=== PATIENT | female | born 2000 | race Caucasian/White ===

== ENCOUNTER 2020-01-19 11:58 | Outpatient (REF) | payer OTHER, SELFPAY | END 2020-01-19 11:59 | disposition home or self-care (01) | LOC: HO.LAB 11:58 | PROVIDERS: Visit Provider Internal Medicine | DX: Z20.828 Contact with and (suspected) exposure to other viral communicable diseases (principal) | CPT/HCPCS: C9803; U0003 ==

== ENCOUNTER 2020-08-16 09:20 | Emergency (ER) | payer OTHER, SELFPAY ==
--- NOTE | ~2020-08-16 | XR_ITS ---
EXAMINATION: XR CHEST CLINICAL INFORMATION: Chest pain, rule out pneumonia. COMPARISON: None TECHNIQUE: Frontal view of the chest was obtained. FINDINGS: No significant abnormality is noted involving the heart, lungs, mediastinum, bony thorax or soft tissues. XR/XR chest 1V IMPRESSION: No acute cardiopulmonary process.
[2020-08-16 09:50] VITALS: BP 100/67; PULSE 83; RESP 18; TEMP 36.6; O2SAT 98; BMI 34.2
--- NOTE | 2020-08-16 10:22 | ECG_ITS ---
Test Reason : UPPER RESPIRATORY Blood Pressure : / mmHG Vent. Rate : 084 BPM Atrial Rate : 084 BPM P-R Int : 166 ms QRS Dur : 082 ms QT Int : 356 ms P-R-T Axes : 039 044 047 degrees QTc Int : 420 ms Normal sinus rhythm Normal ECG No previous ECGs available Referred By: Joni Hussein Electronically Signed By:JULIET DA SILVA
--- NOTE | 2020-08-16 10:54 | ED_ITS ---
HPI - URI/Sore Throat General Chief Complaint: Upper Respiratory Symptoms Stated Complaint: asthma Time Seen by Provider: 08/16/20 10:03 Source: patient Mode of arrival: ambulatory Limitations: no limitations History of Present Illness HPI Narrative: patient presents to the ED for shortness of breath and Cough for the past 4 days. Patient states feeling chest tightness also with cough. Patient was seen at [facility] this past Saturday and was tested for COVID-19 and was negative. Patient states symptoms persist. Patient denies any swelling of lower extremities, control use, recent surgery, recent long travel, recent trauma or history of blood clots. MD elicited complaint: cough Related Data Home Medications Medication Instructions Recorded Confirmed No Known Home Meds 04/28/20 04/28/20 Allergies Allergy/AdvReac Type Severity Reaction Status Date / Time nystatin Allergy Severe Hives Verified 04/28/20 15:44 Review of Systems Review of Systems: Yes all other systems are reviewed and are negative Constitutional: Constitutional: Reports as per HPI and Reports no additional constitutional complaints Eyes: Eyes: Reports as per HPI and Reports no additional eye complaints ENT: Reports system reviewed and no additional complaints, except as documented and Reports as per HPI Cardiovascular: Cardiovascular: Reports as per HPI, Reports no additional cardiovascular complaints, Reports chest pain and Reports dyspnea Respiratory: Respiratory: Reports pain on inspiration, Reports pain with cough, Reports dyspnea and Reports wheezing Gastrointestinal: Gastrointestinal: Reports as per HPI and Reports no additional gastrointestinal complaints Musculoskeletal: Musculoskeletal: Reports no additional musculoskeletal complaints and Reports as per HPI Neurologic: Reports system reviewed and no additional complaints, except as documented and Reports as per HPI Psychiatric: Psychiatric: Reports no additional psychiatric complaints and Reports as per HPI Allergic/Immunologic: Allergic/Immunologic: Reports wheezing [facility] Past Medical History Medical History (Updated 08/16/20 @ 13:54 by LUCY Boss) Asthma Surgical History (Updated 04/28/20 @ 15:36 by Arline Nicole) No history of previous surgery Family History Family History (Updated 04/28/20 @ 15:37 by Arline Nicole) Father No problems noted. Mother No problems noted. Social History Social History (Updated 04/28/20 @ 15:37 by Arline Nicole) Alcohol intake: current Alcohol intake frequency: holidays/special occasions only Patient Tobacco Use Status: Current everyday Tobacco user Cigarettes Per Day: 3 Use of substances other than those prescribed or required for medical reasons: Yes Substance Use Type: Marijuana Advance Directives: Yes Advance Directives Information Provided: Yes Advance Directives on File: No Physical Exam Vital Signs: Vital Signs: Last Vital Signs Temp 98.2 F 08/16/20 13:18 Pulse 79 08/16/20 13:18 Resp 16 08/16/20 13:18 BP 103/54 L 08/16/20 13:18 Pulse Ox 95 08/16/20 13:18 Body Mass Index 34.2 Const: General: cooperative, healthy appearing, comfortable, no acute distress, well developed, alert, awake and Physically active Orientation/consciousness: patient oriented x3 HENMT: Head: Yes normal to inspection, Yes No palpable skull fracture present, Yes normocephalic, Yes atraumatic and Yes abrasion Eyes: General: appearance normal, both eyes and all related structures Neck: Neck: Yes normal visual inspection, Yes full ROM, Yes no lymphadenopathy, Yes no meningeal signs, Yes trachea midline, Yes supple and No tender Chest: Other: positive for chest wall tenderness on palpation Chest palpation & inspection: normal inspection of the chest Resp: Effort & Inspection: normal respiratory effort and able to speak in complete sentences Auscultation: clear to auscultation bilaterally and wheezes expiratory wheezes Cardio: Jugular venous distension: no JVD Heart sounds: S1 normal heart sound present GI: Inspection: Yes normal to inspection and No abdominal wall ecchymosis Palpation (GI): Soft to palpation, not firm, nontender, no guarding and not rigid : General: No CVA tenderness and Yes no CVA tenderness Back/Spine/Pelvis: Back: no CVA tenderness, No CVA tenderness and No back tenderness Skin: General skin exam: no rashes or lesions noted and elasticity normal Neuro: General: patient oriented x3, gait normal, no meningeal signs and CN's II-XI intact bilaterally Cranial nerves: Yes CN's II-XII intact bilaterally Extrem: Other: no extremity is negative for any swelling, pitting edema, calf tenderness General: Yes normal to inspection and Yes full ROM Psych: Appearance: grossly normal, well kempt and not disheveled Course Course Course Narrative: patient will have SARS PCR sent. Patient will have labs and chest x-ray. Patient will have D-dimer sent and EKG. COVID labs also sent. Albuterol Solu-Medrol and magnesium ordered. Reevaluation(s) Reevaluation #1: EKG negative for STEMI. Troponin negative. D-dimer is negative. Perc Score 0 COVID swab is negative. COVID labs are negative. Chest x-ray negative for any pneumonia. Diagnosis is asthma Exacerbation. Patient is safe for discharge. Patient feels better. O2 saturation on room air 98%. Time: 13:48 MDM - URI/Sore Throat MDM Narrative Medical decision making narrative: asthma exacerbation Lab Data Result diagrams: 08/16/20 11:05 08/16/20 11:05 Labs: Lab Results 08/16/20 08/16/20 08/16/20 Range/Units 11:04 11:05 11:05 WBC 12.5 H (4.8-10.8) X10*3/uL RBC 4.26 (4.20-5.50) X10*6/uL Hgb 13.0 (12.0-16.0) g/dl Hct 39.3 (37-47) % MCV 92.3 (80-98) fL MCH 30.5 (27.0-33.0) pg MCHC 33.1 (31.0-35.0) g/dl RDW 13.8 (11.0-16.0) % Plt Count 381 (160-400) X10*3/uL MPV 9.3 L (9.4-12.3) fL Immature Gran % (Auto) 0.5 H (0.0-0.4) % Neut % (Auto) 72.4 (45-73) % Lymph % (Auto) 16.2 L (20-40) % [place] % (Auto) 6.3 (2-11) % Eos % (Auto) 4.3 H (0-4) % Baso % (Auto) 0.3 (0-2) % Lymph # (Auto) 2.0 (1.2-4.9) X10*3/uL [place] # (Auto) 0.8 (0.1-1.2) X10*3/uL Eos # (Auto) 0.5 H (0.0-0.4) X10*3/uL Baso # (Auto) 0.0 (0.0-0.2) X10*3/uL Abs Immat Gran (auto) 0.06 H (0.00-0.03) X10*3/uL Absolute Neuts (auto) 9.0 H (2.0-8.3) X10*3/uL Absolute Nucleated RBC 0.000 (0.0-0.012) X10*3/uL Nucleated RBC % (auto) 0.0 (0.0-0.2) /100WBC PT 11.3 (9.9-13.0) SEC INR 1.0 (0.9-1.1) APTT 29.9 (24.1-38.0) SEC D-Dimer < 200 NG/ML Sodium (135-145) mmol/L Potassium (3.3-5.1) mmol/L Chloride (96-108) mmol/L Carbon Dioxide (22-29) mmol/L Anion Gap (12-20) BUN (9-16) mg/dL Creatinine (0.5-1.4) mg/dL Estim Creat Clear Calc Estimated GFR Random Glucose (60-115) mg/dL Calcium (8.4-10.2) mg/dL Ferritin (10-122) ng/mL Total Bilirubin (0.0-1.0) mg/dL AST (5-31) U/L ALT (0-31) U/L Alkaline Phosphatase (39-117) U/L Lactate Dehydrogenase (122-220) U/L Troponin I High Sens (<3.5-17.0) ng/L Total Protein (6.5-8.0) g/dL Albumin (3.5-5.0) g/dL Procalcitonin ng/mL Beta HCG, Quant < 2 mIU/mL Coronavirus (PCR) (Negative) Influenza Type A (PCR) (Negative) Influenza Type B (PCR) (Negative) RSV RNA Qual (PCR) (Negative) 08/16/20 08/16/20 08/16/20 Range/Units 11:05 11:05 11:05 WBC (4.8-10.8) X10*3/uL RBC (4.20-5.50) X10*6/uL Hgb (12.0-16.0) g/dl Hct (37-47) % MCV (80-98) fL MCH (27.0-33.0) pg MCHC (31.0-35.0) g/dl RDW (11.0-16.0) % Plt Count (160-400) X10*3/uL MPV (9.4-12.3) fL Immature Gran % (Auto) (0.0-0.4) % Neut % (Auto) (45-73) % Lymph % (Auto) (20-40) % [place] % (Auto) (2-11) % Eos % (Auto) (0-4) % Baso % (Auto) (0-2) % Lymph # (Auto) (1.2-4.9) X10*3/uL [place] # (Auto) (0.1-1.2) X10*3/uL Eos # (Auto) (0.0-0.4) X10*3/uL Baso # (Auto) (0.0-0.2) X10*3/uL Abs Immat Gran (auto) (0.00-0.03) X10*3/uL Absolute Neuts (auto) (2.0-8.3) X10*3/uL Absolute Nucleated RBC (0.0-0.012) X10*3/uL Nucleated RBC % (auto) (0.0-0.2) /100WBC PT (9.9-13.0) SEC INR (0.9-1.1) APTT (24.1-38.0) SEC D-Dimer NG/ML Sodium 139 (135-145) mmol/L Potassium 4.6 (3.3-5.1) mmol/L Chloride 106 (96-108) mmol/L Carbon Dioxide 25 (22-29) mmol/L Anion Gap 13 (12-20) BUN 17 H (9-16) mg/dL Creatinine 0.76 (0.5-1.4) mg/dL Estim Creat Clear Calc 122.8 Estimated GFR > 60 Random Glucose 85 (60-115) mg/dL Calcium 9.5 (8.4-10.2) mg/dL Ferritin 52 (10-122) ng/mL Total Bilirubin 0.5 (0.0-1.0) mg/dL AST 11 (5-31) U/L ALT 10 (0-31) U/L Alkaline Phosphatase 61 (39-117) U/L Lactate Dehydrogenase 163 (122-220) U/L Troponin I High Sens < 3.5 (<3.5-17.0) ng/L Total Protein 7.3 (6.5-8.0) g/dL Albumin 4.2 (3.5-5.0) g/dL Procalcitonin < 0.02 ng/mL Beta HCG, Quant mIU/mL Coronavirus (PCR) (Negative) Influenza Type A (PCR) (Negative) Influenza Type B (PCR) (Negative) RSV RNA Qual (PCR) (Negative) 08/16/20 Range/Units 11:06 WBC (4.8-10.8) X10*3/uL RBC (4.20-5.50) X10*6/uL Hgb (12.0-16.0) g/dl Hct (37-47) % MCV (80-98) fL MCH (27.0-33.0) pg MCHC (31.0-35.0) g/dl RDW (11.0-16.0) % Plt Count (160-400) X10*3/uL MPV (9.4-12.3) fL Immature Gran % (Auto) (0.0-0.4) % Neut % (Auto) (45-73) % Lymph % (Auto) (20-40) % [place] % (Auto) (2-11) % Eos % (Auto) (0-4) % Baso % (Auto) (0-2) % Lymph # (Auto) (1.2-4.9) X10*3/uL [place] # (Auto) (0.1-1.2) X10*3/uL Eos # (Auto) (0.0-0.4) X10*3/uL Baso # (Auto) (0.0-0.2) X10*3/uL Abs Immat Gran (auto) (0.00-0.03) X10*3/uL Absolute Neuts (auto) (2.0-8.3) X10*3/uL Absolute Nucleated RBC (0.0-0.012) X10*3/uL Nucleated RBC % (auto) (0.0-0.2) /100WBC PT (9.9-13.0) SEC INR (0.9-1.1) APTT (24.1-38.0) SEC D-Dimer NG/ML Sodium (135-145) mmol/L Potassium (3.3-5.1) mmol/L Chloride (96-108) mmol/L Carbon Dioxide (22-29) mmol/L Anion Gap (12-20) BUN (9-16) mg/dL Creatinine (0.5-1.4) mg/dL Estim Creat Clear Calc Estimated GFR Random Glucose (60-115) mg/dL Calcium (8.4-10.2) mg/dL Ferritin (10-122) ng/mL Total Bilirubin (0.0-1.0) mg/dL AST (5-31) U/L ALT (0-31) U/L Alkaline Phosphatase (39-117) U/L Lactate Dehydrogenase (122-220) U/L Troponin I High Sens (<3.5-17.0) ng/L Total Protein (6.5-8.0) g/dL Albumin (3.5-5.0) g/dL Procalcitonin ng/mL Beta HCG, Quant mIU/mL Coronavirus (PCR) NEGATIVE (Negative) Influenza Type A (PCR) NEGATIVE (Negative) Influenza Type B (PCR) NEGATIVE (Negative) RSV RNA Qual (PCR) NEGATIVE (Negative) ECG Data Interpretation: normal sinus rhythm. Ventricular rate 84. IA interval 166. QRS 82. QTC 420. Negative STEMI Discharge Plan Discharge Clinical Impression: Asthma exacerbation Patient Disposition: Home, Self-Care Instructions: Asthma (ED), Upper Respiratory Infection (ED) Additional Instructions: your chest x-ray came back negative for pneumonia. Your blood work and EKG came back negative for heart attack. Your blood test came back negative for risk of blood clot. Her COVID swab came back negative. Continue taking prescribed meds ( prednisone/albuterol) given to you by [facility] ER this past Saturday. Return to the ED immediately for swelling of lower extremities, calf pain, coughing up blood, worsening chest pain, shortness of breath, or any other concerning symptoms. Prescriptions: No Action No Known Home Meds RF: 0 Referrals: Elan Wilcox PA-C [Primary Care Provider] - 2 days ( Asthma exacerbation. EKG and troponin normal. Chest x-ray normal. D-dimer negative. COVID swab negative) Interventions: ED Discharge Assessment Last Done: 08/16/20 14:06 Discharge Date/Time: 08/16/20 14:07 Print Language: Korean
[2020-08-16] MEDS: methylPREDNISolone Sod Succ 125 MG/2 ML VIAL IVPUSH (11:15)
[2020-08-16] MEDS: Magnesium Sulfate/H2O 2 GM/50 ML PIGGYBACK IV (11:15)
[2020-08-16 11:19] VITALS: O2SAT 97
[2020-08-16 11:19] LABS: MANUAL DIFF FLAG NO
[2020-08-16] MEDS: Albuterol/Iprat 2.5/0.5MG 3 ML AMPUL.NEB INHALE (11:19)
[2020-08-16 11:21] VITALS: RESP 18; O2SAT 96
--- NOTE | 2020-08-16 11:22 | PC.NURSE ---
patient a&ox3, iv inserted, labs drawn, pt medicated per order, library monitor applied nsr 80s-90s, vss, pt speaking in full sentences, will continue to monitor.
[2020-08-16 11:24] LABS: Basophils Percent Auto 0.3 % (0-2); Eosinophils Absolute Auto 0.5 X10*3/uL (0.0-0.4); Eosinophils Percent Auto 4.3 % (0-4); Hematocrit 39.3 % (37-47); Imm Gran Abs Auto 0.06 X10*3/uL (0.00-0.03); Imm Gran Pct Auto 0.5 % (0.0-0.4); Lymphocytes Percent Auto 16.2 % (20-40); Mean Corpuscular HGB Conc 33.1 g/dl (31.0-35.0); Mean Corpuscular Hemoglobin 30.5 pg (27.0-33.0); Mean Corpuscular Volume 92.3 fL (80-98); Mean Platelet Volume 9.3 fL (9.4-12.3); Monocytes Absolute Auto 0.8 X10*3/uL (0.1-1.2); Monocytes Percent Auto 6.3 % (2-11); Neutrophils Percent Auto 72.4 % (45-73); Platelet Count 381 X10*3/uL (160-400); Red Blood Count 4.26 X10*6/uL (4.20-5.50); Red Cell Distribution Width 13.8 % (11.0-16.0); White Blood Count 12.5 X10*3/uL (4.8-10.8)
[2020-08-16 11:30] LABS: Prothrombin Time 11.3 SEC (9.9-13.0)
[2020-08-16 11:33] LABS: Partial Thromboplastin Time 29.9 SEC (24.1-38.0)
[2020-08-16 11:49] LABS: Alanine Aminotransferase 10 U/L (0-31); Albumin Level 4.2 g/dL (3.5-5.0); Alkaline Phosphatase 61 U/L (39-117); Anion Gap 13 (12-20); Aspartate Amino Transferase 11 U/L (5-31); Bilirubin Total 0.5 mg/dL (0.0-1.0); Blood Urea Nitrogen 17 mg/dL (9-16); Calcium 9.5 mg/dL (8.4-10.2); Carbon Dioxide 25 mmol/L (22-29); Chloride 106 mmol/L (96-108); Creatinine Clr Calc Pharmacy 122.8; Estimated Glomerular Filt Rate > 60; Glucose Random 85 mg/dL (60-115); Lactate Dehydrogenase 163 U/L (122-220); Potassium 4.6 mmol/L (3.3-5.1); Sodium 139 mmol/L (135-145); Total Protein 7.3 g/dL (6.5-8.0)
[2020-08-16 11:50] LABS: D Dimer < 200 NG/ML
[2020-08-16 11:54] LABS: HCG Quantitative < 2 mIU/mL
[2020-08-16 11:54] LABS: Troponin-I High Sensitivity < 3.5 ng/L (<3.5-17.0)
[2020-08-16 12:02] LABS: Influenza A PCR NEGATIVE (Negative); Influenza B PCR NEGATIVE (Negative); Resp Syncy Virus RNA Qual PCR NEGATIVE (Negative); SARS COV2 PCR INHOUSE NEGATIVE (Negative)
[2020-08-16 12:10] LABS: Procalcitonin < 0.02 ng/mL
[2020-08-16 12:59] LABS: Ferritin 52 ng/mL (10-122)
[2020-08-16 13:18] VITALS: BP 103/54; PULSE 79; RESP 16; TEMP 36.8; O2SAT 95
--- NOTE | 2020-08-16 13:21 | PC.NURSE ---
patient a&ox3, watching tv, iv mag run over 15 minutes per respiratory protocol, no c/o pain or discomfort,vss, will continue to monitor.
== END 2020-08-16 14:07 | disposition home or self-care (01) ==
PROVIDERS: Physician Assistant; Emergency Provider Emergency Medicine; PCP Physician Assistant
DX: J45.901 Unspecified asthma with (acute) exacerbation (principal); Z20.822 Contact with and (suspected) exposure to COVID-19
CPT/HCPCS: 0241U; 36415; 71045; 80053; 82728; 83615; 84145; 84484; 84702; 85025; 85379; 85610; 85730; 93005; 94640; 96365; 96366; 96375; 99284; 99285; J2930; J3475

== ENCOUNTER 2020-11-08 22:06 | Emergency (ER) | payer OTHER, SELFPAY ==
[2020-11-08 22:12] VITALS: BP 111/72; BP 124/78; PULSE 66; PULSE 67; RESP 18; TEMP 36.8; O2SAT 100; O2SAT 99; BMI 34.3
--- NOTE | 2020-11-09 00:26 | ED.GENADULT ---
HPI - General Adult General Chief complaint: General Medical Stated complaint: NAUSEA/VOMITING Time Seen by Provider: 11/09/20 00:26 Source: patient Mode of arrival: ambulatory Limitations: no limitations History of Present Illness HPI narrative: patient has her period, felt dizzy and nauseaous all day with vomiting. States she could not keep anything down all day. Patient unsure if she is , she does not get her periods often. Onset (ago): hour(s) Severity: mild Associated symptoms: malaise, nausea/vomiting and shortness of breath Related Data Home Medications Medication Instructions Recorded Confirmed No Known Home Meds 04/28/20 04/28/20 Allergies Allergy/AdvReac Type Severity Reaction Status Date / Time nystatin Allergy Severe Hives Verified 04/28/20 15:44 Review of Systems Constitutional: Constitutional: Reports no additional constitutional complaints Eyes: Eyes: Reports no additional eye complaints ENT: Denies dizziness Cardiovascular: Cardiovascular: Reports no additional cardiovascular complaints Respiratory: Respiratory: Reports as per HPI Gastrointestinal: Gastrointestinal: Reports no additional gastrointestinal complaints Genitourinary: Genitourinary: Reports no additional female genitourinary complaints Musculoskeletal: Musculoskeletal: Reports no additional musculoskeletal complaints Integumentary/Breasts: Skin/Breast: Denies rash Neurologic: Reports system reviewed and no additional complaints, except as documented, Denies dizziness and Denies Sensory deficit (Neuro) Psychiatric: Psychiatric: Denies anxiety PMFSH Past Medical History Medical History Asthma Surgical History No history of previous surgery Family History Family History Father No problems noted. Mother No problems noted. Social History Social History Alcohol intake: current Alcohol intake frequency: holidays/special occasions only Patient Tobacco Use Status: Current everyday Tobacco user Cigarettes Per Day: 3 Substance Use Type: Marijuana Advance Directives: No Physical Exam Vital Signs: Vital Signs: Last Vital Signs Temp 98.3 F 11/08/20 22:12 Pulse 67 11/08/20 22:12 Resp 18 11/08/20 22:12 BP 111/72 11/08/20 22:12 Pulse Ox 100 11/08/20 22:12 Body Mass Index 34.3 Const: General: healthy appearing Nutritional Appearance: average body habitus Orientation/consciousness: oriented to person and patient oriented x3 Limitations: no limitations HENMT: Head: Yes normal to inspection Ears: external ears normal General nose exam: Normal external nose present Mouth: Normal oral and palatal mucosa present and oropharynx normal Throat: Yes posterior oropharynx normal Eyes: General: appearance normal, both eyes and all related structures Neck: Other: supple Neck: Yes normal visual inspection Chest: Chest palpation & inspection: normal inspection of the chest Resp: Auscultation: clear to auscultation bilaterally Cardio: Jugular venous distension: no JVD Rate: regular rate Rhythm: regular rhythm Heart sounds: S1 normal heart sound present and S2 normal heart sound present GI: Inspection: Yes normal to inspection Palpation (GI): Soft to palpation, nontender and No hepatosplenomegaly present Auscultation: normal bowel sounds : General: Yes no CVA tenderness Back/Spine/Pelvis: Back: no CVA tenderness Skin: General skin exam: no rashes or lesions noted Neuro: General: oriented to person and patient oriented x3 Cranial nerves: Yes CN's II-XII intact bilaterally Motor exam (neuro): 5/5 motor strength present throughout Sensory Exam: No Sensory deficit (Neuro) Extrem: General: Yes normal to inspection Psych: Appearance: grossly normal Course Reevaluation(s) Reevaluation #1: patient left without completing treatment Time: 00:56 Discharge Plan Discharge Clinical Impression: Nausea & vomiting Patient Disposition: Elopement Prescriptions: No Action No Known Home Meds RF: 0 Discharge Date/Time: 11/09/20 00:40
--- NOTE | 2020-11-09 00:47 | PC.NURSE ---
PT WALKED OUT OF ER AFTER PLACED IN ROOM. THIS RN WAS LOOKING FOR PT SO THAT I COULD START IV, DRAW LABS AND MEDICATE. REGISTRATION WITNESSED PT WALK OUT THE FRONT DOOR. PT NOT IN PARKING LOT.
--- NOTE | 2020-11-09 00:54 | PC.NURSE ---
pt no found in her room at 0040. rn looked in parking lot and lobby and no pt found. pt left after she was seen by dr gross. dr gross advised.
== END 2020-11-09 00:40 | disposition left against medical advice (07) ==
PROVIDERS: Emergency Provider Emergency Medicine
DX: R42 Dizziness and giddiness (principal); R11.2 Nausea with vomiting, unspecified; F17.200 Nicotine dependence, unspecified, uncomplicated; Z71.6 Tobacco abuse counseling
CPT/HCPCS: 99282

== ENCOUNTER 2020-12-17 10:13 | Emergency (ER) | payer OTHER, SELFPAY ==
[2020-12-17 10:18] VITALS: BP 118/55; PULSE 76; RESP 19; TEMP 36.6; O2SAT 100; BMI 34.0
--- NOTE | 2020-12-17 10:50 | ED.FEMALEGU ---
HPI - Female Genitourinary General Chief complaint: Vaginal Bleeding Stated complaint: vag bleed Time Seen by Provider: 12/17/20 10:47 History of Present Illness HPI Narrative: Patient is a 20-year-old female presents today with having vaginal bleeding. Patient's last menstrual period was December 11. Usually her menstruation is regular. She noticed bleeding yesterday at approximately 22:00. Patient is sexually active. Has 1 partner does not use a condom. Claims she has soaked approximately 2 pads since then. No cough no congestion or upper respiratory symptom no diaphoresis no abdominal pain. Patient from home. Related Data Home Medications Medication Instructions Recorded Confirmed No Known Home Meds 04/28/20 04/28/20 Allergies Allergy/AdvReac Type Severity Reaction Status Date / Time nystatin Allergy Severe Hives Verified 04/28/20 15:44 Review of Systems Review of Systems: No fever no chills no chest pain or nausea no vomiting Positive vaginal bleeding No dizziness No syncope Yes all other systems are reviewed and are negative [facility] Past Medical History Attestation statement: The following information was validated with the patient. Medical History Asthma Surgical History No history of previous surgery Family History Family History Father No problems noted. Mother No problems noted. Social History Social History Alcohol intake: current Alcohol intake frequency: does not drink Patient Tobacco Use Status: Never used Tobacco Cigarettes Per Day: 3 Use of substances other than those prescribed or required for medical reasons: Yes Substance Use Type: Marijuana Substance Use Frequency: Daily Last Used Substance: Unknown Any prior treatment program specific to substance use: No Advance Directives: No Physical Exam Vital Signs: Vital Signs: Last Vital Signs Temp 98.6 F 12/17/20 11:01 Pulse 69 12/17/20 11:01 Resp 16 12/17/20 11:01 BP 99/69 12/17/20 11:01 Pulse Ox 100 12/17/20 11:01 Body Mass Index 34.0 Appearance: Alert. Oriented X3. No acute distress. Eyes: Pupils equal, round and reactive to light. ENT: Pharynx normal. Neck: Normal inspection. Neck supple. No lymph nodes noted. No crepitus CVS: Normal heart rate and rhythm. Pulses normal. Normal S1 and S2 Respiratory: No respiratory distress. Breath sounds normal. No Wheezing. No rales Abdomen: Soft and nontender. No rigidity. No distention. good BS x4 Skin: Skin warm and dry. Normal skin color. Normal skin turgor. Extremities: No lower extremity edema. Neurovascular intact to all extremities. No Lacerations. No Rash Neuro: Oriented X 3. No motor deficit. No sensory deficit. Moving all extermities. No slurred speech MDM - Female Genitourinary MDM Narrative Medical decision making narrative: Patient's test was negative. No evidence for ectopic no evidence for miscarriage. Patient's hemoglobin is 13. Baseline. Soaked 2 pads since last night. No extreme bleeding. No dizziness. Vital signs is normal. Will discharge patient home. Pelvic exam was done in the presence of attack. There is minimal blood noted in the vault. The cervical os is closed. There is no adnexal tenderness elicited on palpation. Patient is to be discharged home. Medical Records Attestation: I reviewed the patient's medical records. Lab Data Attestation: I reviewed the patient's lab results. Result diagrams: 12/17/20 11:32 12/17/20 11:32 Labs: Lab Results 12/17/20 12/17/20 12/17/20 Range/Units 11:01 11:32 11:32 WBC 9.2 (4.8-10.8) X10*3/uL RBC 4.29 (4.20-5.50) X10*6/uL Hgb 13.3 (12.0-16.0) g/dl Hct 39.2 (37.0-47.0) % MCV 91.4 (80.0-98.0) fL MCH 31.0 (27.0-33.0) pg MCHC 33.9 (31.0-35.0) g/dl RDW 12.9 (11.0-16.0) % Plt Count 383 (160-400) X10*3/uL MPV 8.9 L (9.4-12.3) fL Immature Gran % (Auto) 0.5 H (0.0-0.4) % Neut % (Auto) 60.0 (45-73) % Lymph % (Auto) 28.6 (20-40) % [place] % (Auto) 5.3 (2-11) % Eos % (Auto) 4.9 H (0-4) % Baso % (Auto) 0.7 (0-2) % Lymph # (Auto) 2.6 (1.2-4.9) X10*3/uL [place] # (Auto) 0.5 (0.1-1.2) X10*3/uL Eos # (Auto) 0.5 H (0.0-0.4) X10*3/uL Baso # (Auto) 0.1 (0.0-0.2) X10*3/uL Abs Immat Gran (auto) 0.05 H (0.00-0.03) X10*3/uL Absolute Neuts (auto) 5.5 (2.0-8.3) x10*3/uL Absolute Nucleated RBC 0.000 (0.0-0.012) X10*3/uL Nucleated RBC % (auto) 0.0 (0.0-0.2) /100WBC Sodium 138 (135-145) mmol/L Potassium 4.2 (3.3-5.1) mmol/L Chloride 107 (96-108) mmol/L Carbon Dioxide 23 (22-29) mmol/L Anion Gap 12 (12-20) BUN 10 (9-16) mg/dL Creatinine 0.71 (0.5-1.4) mg/dL Estim Creat Clear Calc 136.0 Estimated GFR > 60 Random Glucose 89 (60-115) mg/dL Calcium 9.2 (8.4-10.2) mg/dL Total Bilirubin 0.6 (0.0-1.0) mg/dL Direct Bilirubin 0.2 (0.0-0.5) mg/dL AST 16 D (5-31) U/L ALT 16 (0-31) U/L Alkaline Phosphatase 65 (39-117) U/L Total Protein 7.5 (6.5-8.0) g/dL Albumin 4.3 (3.5-5.0) g/dL Urine Test NEGATIVE (NEGATIVE) Discharge Plan Discharge Clinical Impression: Vaginal bleeding Patient Disposition: Home, Self-Care Instructions: Menorrhagia (ED) Prescriptions: No Action No Known Home Meds RF: 0 Referrals: Elan Wilcox PA-C [Primary Care Provider] - 2 days
[2020-12-17 11:01] VITALS: BP 99/69; PULSE 69; RESP 16; TEMP 37; O2SAT 100
--- NOTE | 2020-12-17 11:10 | PC.NURSE ---
pt reports vaginal bleeding that started last night prior to her going to bed. she states that when she woke up this morning there was a large amount of dark blood all over her and her bed with associated lower abdominal cramping. she reports her LMP was 12/11, and she is unsure if she may be . Pt states she started oral contraceptive but only took it twice then stopped taking them on her own. pt alert and oriented x4, vss. will continue to monitor.
[2020-12-17 11:21] LABS: UPreg QC Valid YES; Urine Pregnancy NEGATIVE (NEGATIVE)
[2020-12-17 11:38] LABS: MANUAL DIFF FLAG NO
[2020-12-17 11:39] LABS: Basophils Absolute Auto 0.1 X10*3/uL (0.0-0.2); Basophils Percent Auto 0.7 % (0-2); Eosinophils Absolute Auto 0.5 X10*3/uL (0.0-0.4); Eosinophils Percent Auto 4.9 % (0-4); Hematocrit 39.2 % (37.0-47.0); Hemoglobin 13.3 g/dl (12.0-16.0); Imm Gran Abs Auto 0.05 X10*3/uL (0.00-0.03); Imm Gran Pct Auto 0.5 % (0.0-0.4); Lymphocytes Absolute Auto 2.6 X10*3/uL (1.2-4.9); Lymphocytes Percent Auto 28.6 % (20-40); Mean Corpuscular HGB Conc 33.9 g/dl (31.0-35.0); Mean Corpuscular Volume 91.4 fL (80.0-98.0); Mean Platelet Volume 8.9 fL (9.4-12.3); Monocytes Absolute Auto 0.5 X10*3/uL (0.1-1.2); Monocytes Percent Auto 5.3 % (2-11); Neutrophils Absolute Auto 5.5 x10*3/uL (2.0-8.3); Platelet Count 383 X10*3/uL (160-400); Red Blood Count 4.29 X10*6/uL (4.20-5.50); Red Cell Distribution Width 12.9 % (11.0-16.0); White Blood Count 9.2 X10*3/uL (4.8-10.8)
[2020-12-17 11:53] LABS: Alanine Aminotransferase 16 U/L (0-31); Albumin Level 4.3 g/dL (3.5-5.0); Alkaline Phosphatase 65 U/L (39-117); Anion Gap 12 (12-20); Aspartate Amino Transferase 16 U/L (5-31); Bilirubin Direct 0.2 mg/dL (0.0-0.5); Bilirubin Total 0.6 mg/dL (0.0-1.0); Blood Urea Nitrogen 10 mg/dL (9-16); Calcium 9.2 mg/dL (8.4-10.2); Carbon Dioxide 23 mmol/L (22-29); Chloride 107 mmol/L (96-108); Estimated Glomerular Filt Rate > 60; Glucose Random 89 mg/dL (60-115); Potassium 4.2 mmol/L (3.3-5.1); Sodium 138 mmol/L (135-145); Total Protein 7.5 g/dL (6.5-8.0)
== END 2020-12-17 12:19 | disposition home or self-care (01) ==
PROVIDERS: Emergency Provider Emergency Medicine Emergency Medical Services; PCP Physician Assistant
DX: N93.9 Abnormal uterine and vaginal bleeding, unspecified (principal); F17.210 Nicotine dependence, cigarettes, uncomplicated; Z71.6 Tobacco abuse counseling; Z79.899 Other long term (current) drug therapy
CPT/HCPCS: 36415; 80048; 80076; 81025; 85025; 99283; 99284

== ENCOUNTER 2021-11-15 15:33 | Emergency (ER) | payer OTHER, SELFPAY ==
--- NOTE | ~2021-11-15 | XR_ITS ---
EXAMINATION: XR KNEE, RIGHT CLINICAL INFORMATION: Knee pain COMPARISON: Right knee radiographs 06/24/2015 TECHNIQUE: Four views of the right knee. FINDINGS: No acute fracture, dislocation, or knee joint effusion. Joint spaces are maintained. No osseous lesion. XR/XR knee RT 4V IMPRESSION: 1. No acute osseous injury or joint effusion.
[2021-11-15 16:16] VITALS: BP 120/58; PULSE 81; RESP 16; TEMP 36.2; O2SAT 99; BMI 34.9
--- NOTE | 2021-11-15 19:07 | ED.EXTPRO ---
HPI - Extremity Problem General Chief complaint: Extremity Problem Stated complaint: right leg pain, lump Time Seen by Provider: 11/15/21 19:03 Source: patient Mode of arrival: ambulatory Limitations: no limitations History of Present Illness HPI Narrative: Patient comes to the emergency room complaining of right knee pain on the lateral aspect. Patient denies any trauma. Patient is able to ambulate. Patient states that she feels that she has a bump inside. The discoloration, complaining of occasional cramps in her right leg Related Data Home Medications Medication Instructions Recorded Confirmed drospirenone 3 mg-ethinyl 1 tab PO DAILY 07/19/21 estradiol 0.02 mg tablet (Destinee (28)) emtricitabine 200 mg-tenofovir 1 tab PO DAILY 07/19/21 disoproxil fumarate 300 mg tablet Previous Rx's Medication Instructions Recorded albuterol sulfate 90 mcg/actuation 1 puff inhalation Q6-8H 30 days 01/11/21 aerosol inhaler (ProAir HFA) #8.5 grams nicotine 7 mg/24 hr daily 1 patch transdermal Q24H 14 days 01/11/21 transdermal patch #14 ea hydroxyzine HCl 10 mg tablet 10 mg PO DAILY PRN anxiety 30 days 02/20/21 #30 tabs hydrocortisone 2.5 % topical cream 1 appl topical BID #20 grams 07/19/21 Allergies Allergy/AdvReac Type Severity Reaction Status Date / Time nystatin Allergy Severe Hives Verified 07/19/21 13:26 Review of Systems Review of Systems: Constitutional : No Weight loss, No Fever, No Chills, No Night Sweats, No Fatigue, No Malaise ENT/Mouth : No Hearing loss, No Ear Pain, No Nasal Congestion, No Sinus Pain, No Hoarseness, No sore throat, No Rhinorrhea, No Swallowing Difficulty Eyes: No Eye Pain, No Swelling, No Redness, No Foreign Body, No Discharge, No Vision Changes Cardiovascular : No Chest Pain, No SOB, No Dyspnea on Exertion, No Orthopnea, No Edema, No Palpitations Respiratory : No Cough, No Sputum, No Wheezing, No Smoke Exposure, No Dyspnea Gastrointestinal : No Nausea, No Vomiting, No Diarrhea, No Constipation, No abdominal Pain, No Hematochezia, No Melena Genitourinary : no irregular bleeding, No Dysuria, No Urinary Frequency, No Hematuria, No Urinary Incontinence, No Urgency, No Flank Pain, No Urinary Flow Changes, No Hesitancy Musculoskeletal : Complaining of pain in the right side of the knee lateral aspect, occasional cramping of the right leg, No Myalgias, No Joint Swelling Skin : No Skin Lesions, No rash Neuro : No Weakness, No Numbness, No Paresthesias, No Loss of Consciousness, No Dizziness, No Headache Psych : No Anxiety/Panic, No Depression, No SI/HI/AH/VH, No Social Issues, Heme/Lymph: No Bruising, No Bleeding,No Lymphadenopathy Endocrine : No Polyuria, No Polydipsia, No Temperature Intolerance [facility] Past Medical History Medical History Asthma Surgical History No history of previous surgery Family History Family History Father No problems noted. Mother No problems noted. Maternal Uncle Substance use disorder Social History Social History Alcohol intake: never Patient Tobacco Use Status: Current everyday Tobacco user Tobacco use type: Cigarette Cigarettes Per Day: 3 e-Cigarette/Vaping Use: Never Used Second Hand Smoke Exposure: Yes Substance Use Type: Marijuana Advance Directives: No Advance Directives Information Provided: No service: No Current occupational status: employed Current occupation: [employer] Cognitive needs: No Hearing needs: No Vision needs: No Physical Exam Vital Signs: Vital Signs: Last Vital Signs Temp 97.1 F 11/15/21 16:16 Pulse 81 11/15/21 16:16 Resp 16 11/15/21 16:16 BP 120/58 L 11/15/21 16:16 Pulse Ox 99 11/15/21 16:16 O2 Del Method 11/15/21 16:16 BMI result Body Mass Index 34.9 Const: Other: Appearance: Alert. Oriented X3. No acute distress. Eyes: Pupils equal, round and reactive to light. ENT: Pharynx normal. Neck: Normal inspection. Neck supple. No lymph nodes noted. No crepitus CVS: Normal heart rate and rhythm. Pulses normal. Normal S1 and S2 Respiratory: No respiratory distress. Breath sounds normal. No Wheezing. No rales Abdomen: Soft and nontender. No rigidity. No distention. Skin: Skin warm and dry. Normal skin color. Normal skin turgor. Extremities: No lower extremity edema. No Lacerations. No Rash Neuro: Oriented X 3. No motor deficit. No sensory deficit. Moving all extremities. No slurred speech. CN 2 through 12 grossly intact Psych: calm, cooperative, normal affect Course Course Course Narrative: Patient's physical exam is normal, there is no ecchymosis, patient has normal flexion and extension, no erythema, no additional warmth, no palpable abnormalities, patient has normal steady gait. X-rays negative. Is possible the patient may have an ecchymosis. Joint effusion/septic joint is not suspected Patient states she has Tylenol and ibuprofen at home. MDM - Extremity (Nontraumatic) Imaging Data Knee x-ray: Radiologist's impression: FINDINGS: No acute fracture, dislocation, or knee joint effusion. Joint spaces are maintained. No osseous lesion. XR/XR knee RT 4V IMPRESSION: 1. No acute osseous injury or joint effusion. Discharge Plan Discharge Clinical Impression: Arthralgia of knee, right Patient Disposition: Home, Self-Care Instructions: Knee Pain (ED) Additional Instructions: Please follow-up with your primary care physician tomorrow. If you have any worsening or new symptoms, please return to the emergency room or call 911 Prescriptions: No Action hydroxyzine HCl 10 mg tablet 10 mg PO DAILY PRN (Reason: anxiety) 30 Days Qty: 30 2RF drospirenone-ethinyl estradiol [Destinee (28)] 3-0.02 mg tablet 1 tab PO DAILY emtricitabine-tenofovir (TDF) 200-300 mg tablet 1 tab PO DAILY hydrocortisone 2.5 % cream 1 appl topical BID Qty: 20 0RF albuterol sulfate [ProAir HFA] 90 mcg/actuation HFA aerosol inhaler 1 puff inhalation Q6-8H 30 Days Qty: 8.5 2RF nicotine 7 mg/24 hr patch 24 hour 1 patch transdermal Q24H 14 Days Qty: 14 0RF
== END 2021-11-15 19:23 | disposition home or self-care (01) ==
PROVIDERS: Emergency Provider Emergency Medicine; PCP Physician Assistant
DX: M25.561 Pain in right knee (principal)
CPT/HCPCS: 73564; 99282; 99283